=== PATIENT | female | born 1985 | race Caucasian/White ===

== ENCOUNTER 2019-05-29 11:44 | Emergency (ER) | payer OTHER, SELFPAY ==
[2019-05-29] VITALS (11 sets, daily range): BP systolic 95–111; BP diastolic 51–72; PULSE 71–118; RESP 12–16; TEMP 36.2; O2SAT 99–100; BMI 18.3
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
[2019-05-29] MEDS: SODIUM CHLORIDE 0.9% 1,000 ML 1000 ML IV ×2 (12:15→13:55)
[2019-05-29 12:16] LABS: Add Manual Diff / Slide Review NO; Basophils Absolute Auto 0 /uL (0-100); Basophils Percent Auto 0.3 % (0-2); Eosinophils Absolute Auto 0 /uL (0-450); Eosinophils Percent Auto 0.3 % (2-4); Hematocrit 37.6 % (36-46); Hemoglobin 12.8 g/dL (12.0-16.0); Lymphocytes Absolute Auto 2100 /uL (1100-4500); Lymphocytes Percent Auto 18.6 % (25-40); Mean Corpuscular HGB Conc 34.1 % (30-36); Mean Corpuscular Hemoglobin 30.5 PG (26-34); Mean Corpuscular Volume 89.5 fL (80-100); Monocytes Absolute Auto 500 /uL (0-900); Monocytes Percent Auto 4.5 % (3-14); Neutrophils Absolute Auto 8600 /uL (1500-7000); Neutrophils Percent Auto 76.3 % (50-75); Platelet Count 377 X10^3/uL (150-400); Red Cell Distribution Width 13.3 % (11.6-14.8); White Blood Cell Count 11.3 X10^3/uL (4.5-11.0)
[2019-05-29 12:20] LABS: INR 1.1 (0.9-1.3); Prothrombin Time 12.5 SECONDS (10.1-12.7)
[2019-05-29 12:23] LABS: Ethanol (ETOH) < 10 mg/dL
[2019-05-29 12:24] LABS: Alanine Aminotransferase 19 IU/L (9-52); Albumin 4.3 g/dL (3.5-5.0); Albumin Globulin Ratio 1.5 (1.0-2.8); Alkaline Phosphatase 48 U/L (38-126); Aspartate Aminotransferase 31 IU/L (14-36); BUN Creatinine Ratio 28.3 (6-22); Bilirubin Total 0.7 mg/dL (0.2-1.3); Blood Urea Nitrogen 17 mg/dL (7-17); Calcium 8.9 mg/dL (8.4-10.2); Carbon Dioxide 21 mmol/L (22-32); Chloride 101 mmol/L (98-107); Estimated Glomerular Filt Rate > 60.0 mL/min (>60); Globulin 2.9 g/dL (1.7-4.1); Glucose 98 mg/dL (70-100); HEMOLYSIS < 15 (0-50); Potassium 3.9 mmol/L (3.4-5.1); Sodium 137 mmol/L (137-145); Total Protein 7.2 g/dL (6.3-8.2)
[2019-05-29 12:31] LABS: Pregnancy Test Serum,Qual Negative (Negative)
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
[2019-05-29] MEDS: LIDOCAINE/PRILOCAINE 5 GM TOP (13:14)
[2019-05-29] MEDS: LIDOCAINE 2% INJ MDV 20 ML (13:14)
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
[2019-05-29] MEDS: VECURONIUM 10 MG VIAL IV (13:50)
[2019-05-29] MEDS: SUCCINYLCHOLINE 200 MG/10 ML VIAL 100 MG IV (13:51)
[2019-05-29] MEDS: fentaNYL 100 MCG/2 ML INJ 50 MCG IV (13:52)
[2019-05-29] MEDS: PROPOFOL 1,000 MG/100 ML VIAL 2.994 MG IV (13:59)
[2019-05-29] MEDS: fentaNYL 1,000 MCG in DEXTROSE 5% IN WATER 250 ML 9.431 ML IV (14:00)
[2019-05-29] MEDS: CEFAZOLIN 2 GM/100 ML FROZ.PIGGY IV (14:35)
[2019-05-29] MEDS: TET,DIPH,PERTUSS(ACELL),VAC/PF 0.5 ML SYRINGE IM (14:45)
[2019-05-29 15:02] LABS: Urine Amphetamines Negative (Negative); Urine Barbiturates Negative (Negative); Urine Benzodiazepines Negative (Negative); Urine Cocaine Negative (Negative); Urine MDMA Negative (Negative); Urine Methadone Negative (Negative); Urine Methamphetamines Negative (Negative); Urine Morphine/Opi cutoff 2000 Negative (Negative); Urine Oxycodone Negative (Negative); Urine Phencyclidine Negative (Negative); Urine Tetrahydrocannabinol Negative (Negative); Urine Tricyclic Antidepressant Negative (Negative)
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
--- NOTE | 2019-06-04 14:43 | PC.NURSE ---
Late Entry STOP TIME fentanyl Drip [id number]
== END 2019-05-29 14:47 | disposition short-term general hospital (02) ==
PROVIDERS: Emergency Provider Emergency Medicine
DX: J98.8 Other specified respiratory disorders (principal); S06.0X1A Concussion with loss of consciousness of 30 minutes or less, initial encounter; S27.0XXA Traumatic pneumothorax, initial encounter; S19.80XA Other specified injuries of unspecified part of neck, initial encounter; S01.81XA Laceration without foreign body of other part of head, initial encounter; S60.552A Superficial foreign body of left hand, initial encounter; Z23 Encounter for immunization
CPT/HCPCS: 70450; 70486; 70491; 71045; 71260; 72170; 73130; 74177; 80053; 80305; 80320; 84703; 85025; 85610; 86850; 86900; 86901; 90471; 94770; 96361; 96365; 96368; 96375; 99285; 99291; 99292; 90715; G0390; J0330; J0690; J2704; J3010; Q9967